=== PATIENT | male | born 1955 | race Caucasian/White ===

== ENCOUNTER 2025-07-05 17:51 | Emergency (ER) | payer BC, MEDICARE ==
[2025-07-05] MEDS: Acetaminophen/oxyCODONE 325-5 MG Tab PO STA (18:14)
[2025-07-05 19:27] VITALS: BP 140/86; PULSE 61
== END 2025-07-05 19:20 | disposition home or self-care (01) ==
LOC: FB.ED 17:51
DX: M51.16 Intervertebral disc disorders with radiculopathy, lumbar region (principal); E78.00 Pure hypercholesterolemia, unspecified; Z79.82 Long term (current) use of aspirin; Z79.899 Other long term (current) drug therapy
CPT/HCPCS: 99283; A9270-GY

== ENCOUNTER 2025-07-09 17:43 | Emergency (ER) | payer MEDICARE ==
[2025-07-09 19:19] VITALS: BP 133/82; PULSE 83
== END 2025-07-09 19:28 | disposition home or self-care (01) ==
LOC: FB.ED 17:43
DX: K56.41 Fecal impaction (principal); M51.369 Other intervertebral disc degeneration, lumbar region without mention of lumbar back pain or lower extremity pain; M54.30 Sciatica, unspecified side; E78.00 Pure hypercholesterolemia, unspecified; F17.210 Nicotine dependence, cigarettes, uncomplicated; Z79.899 Other long term (current) drug therapy; Z79.82 Long term (current) use of aspirin
CPT/HCPCS: 99283